=== PATIENT | female | born 1945 | race Caucasian/White ===

== ENCOUNTER 2017-05-11 14:54 | Emergency (ER) | payer MEDICARE, MEDICAID ==
[~2017-05-11] VITALS: Ht 165.1 cm; Wt 67.4 kg
[~2017-05-11 14:54] MED LIST: ASPIRIN81 MG PO; CELEXA20 MG PO; CENTRUM SILVER1 TAB PO; DARVOCET-N6 EACH/PAK PO; DIAZEPAM5 M1 PO; KEFLEX250 M1 PO; LISINOPRIL 20MG20 MG PO; PROPRANOLOL HCL40 M1 PO; SIMVASTATIN40 MG PO; VICODIN 5/500 T1 TAB PO
[2017-05-11] MEDS ORDERED: LIPITOR20 MG PO (15:17)
[2017-05-11] MEDS ORDERED: FISH OIL1000 MG PO (15:18)
[2017-05-11] MEDS ORDERED: VITAMIN B-1100 MG PO (15:18)
[2017-05-11] MEDS ORDERED: NEURONTIN400 M1 PO (15:18)
--- OUTSIDE RECORDS SUMMARY | 2017-05-11 16:12 | External Medical Summary Rpt ---
Author Author [facility] Organization [facility] Address Unknown Phone Unavailable Care Team Providers Care Occupational Therapy Director Name Role Phone Sundar VINES PCP [phone] Encounter [facility] [id number] Date(s): 07/15/16 - 07/20/16 [facility] [address] [place] [id number]- Discharge Diagnosis: Muscle weakness Discharge Disposition: OP Self Care or Home Attending Physician: MONTY LAND MD-SUR Admitting Physician: MONTY LAND MD-SUR Referring Physician: MONTY LAND MD-SUR Reason for Visit MUSCLE WEAKNESS (GENERALIZED) Vital Signs Most recent 1 2 3 to oldest [Reference Range]: Temperature Temporal artery Temporal artery Source scanning (07/20/16 scanning (07/20/16 8:25 AM) 7:00 AM) Temperature Fahrenheit Fahrenheit Mode (07/20/16 8:25 AM) (07/20/16 7:00 AM) Temperature, 97.4 Deg F 98.6 Deg F Fahrenheit (07/20/16 8:25 AM) (07/20/16 7:00 AM) [96.8-99.7 Deg F] Clinical 36.3 Deg C Temperature, (07/20/16 8:25 AM) C Peripheral 74 bpm 75 bpm Pulse Rate (07/20/16 8:39 AM) (07/20/16 8:25 AM) [60-100 bpm] Heart Rate 78 bpm Monitored (07/20/16 7:00 AM) [60-100 bpm] Respiratory 16 Breaths/Min Rate [14-20 (07/20/16 7:00 AM) Breaths/Min] Blood Arm, left upper Pressure (07/20/16 7:00 AM) Location Blood Non-Invasive BP Pressure Device (07/20/16 Source 7:00 AM) Blood 100/60 mmHg 103/62 mmHg 101/53 mmHg Pressure (07/20/16 8:39 AM) (07/20/16 8:25 AM) (07/20/16 7:00 AM) [90-140/60-9 0 mmHg] Oxygen 97 % 97 % 96 % Saturation (07/20/16 8:39 AM) (07/20/16 8:25 AM) (07/20/16 7:00 AM) [94-100 %] Oxygen Room air Room air Therapy Mode (07/20/16 8:25 AM) (07/20/16 7:00 AM) Problem List Condition Effective Status Health Informant Dates Status Arthritis(Co Active nfirmed) Back Active pain(Confirm ed) Bronchitis(C Active onfirmed) Cigarette Active smoker(Confi rmed) Coronary Active artery disease(Conf irmed) DDD Active (degenerativ e disc disease), cervical(Con firmed) DDD Active (degenerativ e disc disease), lumbosacral( Confirmed) Carotid Active artery disease(Conf irmed) Dyspnea on Active exertion(Con firmed) falls Active recently leg/muscle weakness(Con firmed) GERD - Active Gastro-esoph ageal reflux disease(Conf irmed) H/O ruptured Active Spleen(Confi rmed) Frequent Active headaches(Co nfirmed) heart Active murmur(Confi rmed) Hx of Active dizziness(Co nfirmed) History of Active mitral valve prolapse(Con firmed) Hyperlipidem Active ia(Confirmed ) Hypertension Active (Confirmed) Anxiety and Active depression(C onfirmed) Peripheral Active vascular disease(Conf irmed) Pneumonia -? Active yr(Confirmed ) Emphysema/CO Active PD(Confirmed ) Allergies, Adverse Reactions, Alerts Substance Reaction Severity Status acetaminophen-di hives Active phenhydrAMINE hives contrast media Rash Active (iodine-based) Rash sulfa drugs Hives Active Medications aspirin 81 mg, Oral, Every Day, Refills: 0 citalopram (citalopram 20 mg oral tablet) 1 Tab, Oral, Every Day, Refills: 0 diazepam (diazepam 5 mg oral tablet)1 Tab, Oral, Four Times A Day, As Needed, for anxiety, Refills: 0 gabapentin (gabapentin 300 mg oral capsule) 1 Cap, Oral, Two Times A Day, Refills: 0 lisinopril (lisinopril 40 mg oral tablet) 1 Tab, Oral, Every Day, Refills: 0 omega-3 polyunsaturated fatty acids (Fish Oil 1000 mg oral capsule)1 Cap, Oral, Two Times A Day, Refills: 0 propranolol (propranolol 40 mg oral tablet) 1 Tab, Oral, Two Times A Day, Refills: 0 simvastatin (simvastatin 40 mg oral tablet) 1 Tab, Oral, At Bedtime, Refills: 0 thiamine (Vitamin B1 100 mg oral tablet) 1 Tab, Oral, Every Day, Refills: 0 Results No data available for this section Immunizations No data available for this section Procedures Procedure Date Related Body Site Diagnosis right carotid stent 01/23 back surgery L&D cholecystectomy hysterectomy left breast lumpectomy tubal ligation Social History Social History Response Type Smoking Status Current every day smoker; Smoking Frequency Within Last 30 Days Five or more cigarettes per day; Tobacco Use Within Last Twelve Months Cigarettes; Years of Tobacco Use 52; Packs/Tins Daily 1; Used Tobacco, but Quit No; Second Hand Smoke Exposure No; Smokeless Tobacco Use in Last 30 Days No; Smokeless Tobacco Use History None Assessment and Plan No data available for this section Hospital Discharge Instructions Patient EducationGeneral Anesthesia, Adult, Care After
--- OUTSIDE RECORDS SUMMARY | 2017-05-11 16:12 | External Medical Summary Rpt ---
Author Author [facility] Organization [facility] Address Unknown Phone Unavailable Care Team Providers Care Hinging Machine Operator Name Role Phone Sundar VINES PCP [phone] Encounter [facility] [id number] Date(s): 07/15/16 - 07/20/16 [facility] [address] [address]- Discharge Diagnosis: Muscle weakness Discharge Disposition: OP [...]
--- OUTSIDE RECORDS SUMMARY | 2017-05-11 16:13 | External Medical Summary Rpt ---
Author Author , Organization [facility] Address Unknown Phone Unavailable Care Team Providers Care Supervisor Powdered Metal Name Role Phone A Sundar VINES MD PSC, A Unavailable Unavailable Sundar VINES MD PSC [facility] Unavailable [facility]available [facility] Unavailable Unavailable [facility] Unavailable Unavailable [facility], [facility] Un[facility] Unavailable [facility], [facility], [facility] Unavailable Unavailable MANSOOR TIM, Unavailable Unavailable [facility]SO[facility] TIM [facility] Unavailable Unavailable [facility], [facility], Unavailable Unavailable [facility] EVERMAN, EVERMAN Unavailable Unavailable EVERMAN JACOB, EVERMAN Unavailable Unavailable JACOB FALLUJI CLAIRE, FALLUJI Unavailable Unavailable [facility] Un[facility], [facility] LÁZARO CASIANO, LÁZARO CASIANO Unavailable Unavailable [facility], [facility] Unavailable Unavailable MEDICAL G, [facility] Un[facility], [facility]available Unavailable [facility], [facility] Unavailable Unavailable [facility], [facility], SCIFRES Unavailable Unavailable AN[facility] Unavailable Unavailable [facility], [facility] Unavailable Unavailable [facility], [facility], Unavailable Unavailable [facility] SHANDA DILIA, SHANDA Unavailable Unavailable [facility] Unavailable Unavailable [facility], [facility], Unavailable Unavailable [facility] WHANG EVELIO, WHANG EVELIO Unavailable Unavailable SHAIKH GRE, SHAIKH Unavailable Unavailable GRE VINES A, VINES A Unavailable Unavailable VINES MARTÍN, VINES Unavailable Unavailable MARTÍN Purpose Continuity of Care Document - 09-07-2011 through 2016 Problems Code Diagnosis DOS Provider Status E782 MIXED 04-14-2017 [facility] HYPERLIPIDE [facility] AGUILAR HOLDINGS I10 ESSENTIAL 04-14-2017 [facility] PRIMARY ANIBAL HYPERTENSIO HOLDINGS N G629 POLYNEUROPA 01-01-2017 [facility] THY UNSPECIFIED I6529 OCCLUSION & 01-01-2017 [facility] STENOSIS UNSPECIFIED CAROTID ARTERY M5416 RADICULOPAT 01-01-2017 [facility] HY LUMBAR REGION R269 UNSPECIFIED 01-01-2017 [facility] ABNORMALITI ES OF GAIT AND MOBILITY R293 ABNORMAL 11-23-2016 [facility] POST[facility]ALTH MEDICAL G G92999 MUSCLE 07-20-2016 [facility] RIGHT THIGH M6281 MUSCLE 07-20-2016 [facility] GENERALIZED PSC Z0000 ENCOUNTER 07-20-2016 [facility] MED EXAM W/O ABNORMAL FIND E5111 DRY 07-15-2016 [facility] [id number] CONTUSION 07-14-2016 [facility] UNS FINGER ANIBAL W/O DAMAGE HOLDINGS NAIL INITIAL ENC Z23 ENCOUNTER 07-14-2016 [facility] FOR ANIBAL IMMUNIZATIO HOLDINGS N 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 CHRONIC 07-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 UNS EQUIPME M545 LOW BACK 07-07-2016 [facility] Z9181 HISTORY OF 07-07-2016 [facility] M5126 OT 05-06-2016 [facility] DISPLACEMEN T LUMBAR RGN M5136 OT 05-06-2016 [facility] DEGEN LUMBAR REGION G250 ESSENTIAL 04-29-2016 [facility] A75763 PAIN IN 04-07-2016 [facility] D12913 PAIN IN 04-07-2016 [facility] R42 DIZZINESS 03-05-2016 [facility] Z720 TOBACCO USE 03-05-2016 [facility] Z98158 OTHER LONG 03-05-2016 [facility] CURRENT INC DRUG THERAPY C80475 PRESENCE OF 03-05-2016 [facility] CARDIAC INC IMPLANTS AND GRAFTS I340 NONRHEUMATI 02-27-2016 [facility] INSUFFICIEN CY R0609 OTHER FORMS 02-27-2016 [facility] G I779 DISORDER OF 01-14-2016 Leatha TUCKER MD PSC AND ARTERIOLES UNSPECIFIED 2724 OTHER AND 07-16-2015 [facility] UNSPECIFIED ANIBAL HOLDINGS HYPERLIPIDE AGUILAR 4011 ESSENTIAL 07-16-2015 [facility] HYPERTENSIO ANIBAL N, BENIGN HOLDINGS V851 BODY MASS 07-16-2015 [facility] INDEX ANIBAL [facility] 19-24 ADULT 86746 DENTAL 04-15-2015 [facility] CARIES OF ANIBAL ROOT HOLDINGS SURFACE 7242 LUMBAGO 04-15-2015 [facility] AN[facility] 73424 OCCLUSION&S 02-17-2015 [facility] CAROTID ART MEDICAL G W/O MENTION INFARCT 4019 UNSPECIFIED 02-14-2015 [facility] HYPERTENSIO N V1582 PERS HX 02-14-2015 [facility] TOBACCO USE [facility] 16842 COR 01-15-2015 A Sundar VINES ATHEROSLERUri MATHEWS PSC UNSPEC TYPE VESSEL QUILEUTE/LESLEE T 4479 UNSPECIFIED 01-15-2015 A Sundar VINES DISORDERS PSC OF ARTERIES AND ARTERIOLES 7030 INGROWING 07-16-2014 A Sundar VINES NAIL PSC V0382 NEED PROPH 07-16-2014 A Sundar VINES VACCINATION PSC AGAINST STREP PNEUMONE V0481 NEED 07-16-2014 A Sundar VINES PROPHYLACTI PSC C VACCINATION &INOCULATIO N FLU V7612 OTHER 04-29-2014 [facility] MAMMOGRAM INC 83819 NUCLEAR 03-14-2014 [facility] 93047 OCCL&STENOS 02-14-2014 [facility] MX&BILAT [facility]ICAL PRECERBRL IMAGING ASS ART W/O INFARCT 47295 UNSPECIFIED 09-04-2012 [facility] S 7231 CERVICALGIA 07-21-2012 [facility] 441 AORTIC 01-26-2012 [facility] DISSECTION 59182 SHORTNESS 01-26-2012 [facility] INC 7804 DIZZINESS 12-01-2011 [facility] K[facility]AD[facility] 4359 UNSPECIFIED 11-03-2011 [facility] CEREBRAL INC ISCHEMIA 7852 UNDIAGNOSED 09-20-2011 [facility] CARD[facility]AC [facility] MURMURS INC 7812 ABNORMALITY 09-07-2011 [facility] INC V571 OTHER 09-07-2011 [facility] THERAPY INC Immunization Name Date Route CVX Reacti Commen Provid Is Given on t er Refuse d PCV13 MOHINDER No VACCIN 2013 A E FOR INTRAM USCULA R USE Procedures Procedure DOS Code Location Performer Comment BASIC 57394 [facility] METABOLIC 7 ANIBAL ANIBAL PANEL HOLDINGS HOLDINGS CALCIUM TOTAL COMMODE E0163 [facility] CHAIR 7 MOBILE OR STATIONAR Y W/[place] [address] [facility] SURG 6 Y Y PATHOLOGY [facility] GROSS&AB ROSCOPIC EXAM SPECIAL 09662 [facility] I&R 6 Y Y [facility] III ENZYME CONSITUEN TS SPCL STN 68052 [facility] 2 I&R 6 Y [facility] MICROORG/ ENZYME/IM CYT ANES 67899 [facility] LÁZARO STEPHENIE NERVE 6 A MUSC ASSOCIATE TENDON S PSC FASCIA & BURSAE UPPER LEG BIOPSY [facility] MUSCLE 6 SURGICAL DILIA DEEP ASSOCIATE S COLLECTIO 71690 [facility] N VENOUS [address] [place] [address] BLOOD VENIPUNCT URE C-REACTIV 42376 [facility] E PROTEIN [address] [place] [address] CREATINE 99788 [facility] KINASE [address] [place] [address] TOTAL SEDIMENTA 46644 [facility] TION RATE [address] [place] [address] RBC NON-AUTOM ATED BASIC 24622 [facility] METABOLIC 6 ANIBAL ANIBAL PANEL HOLDINGS HOLDINGS CALCIUM TOTAL SEAT E0156 [facility] RUEDARELL ATTACHMEN 6 HOME HOME T WALKER MEDICAL MEDICAL EQUIPME EQUIPME WALKER E0143 MATT MATT FOLDING 6 HOME HOME WHEELED MEDICAL MEDICAL ADJUSTABL EQUIPME EQUIPME E/FIXED HEIGHT NERVE 09619 [facility] ANNOCALA CONDUCTIO 6 NE HEALTH JACOB N STUDIES MEDICAL 7-8 G STUDIES NEEDLE 49990 [facility] EMG EA 6 NE HEALTH JACOB EXTREMTY MEDICAL W/PARASPI G NL AREA COMPLETE MRI 13954 [facility] SPINAL 6 [facility] CANAL INC INC LUMBAR W/O CONTRAST MATERIAL 3D 08246 [facility] RENDERING 6 [facility] W/INTERP INC INC & POSTPROCE SS SUPERVISI ON PROTEIN [address] ORETIC FRACTJ&[place] [address] [facility] THIAMINE[address] VITAMIN B-1 CYANOCOBA 33138 [facility] JERICHO [address] [place] [address] VITAMIN B-12 COLLECTIO 30356 [facility] N VENOUS [address] [place] [address] [place] [address] [facility] COPPER [address] [place] [address] [place] [address] [facility] FOLIC [address] [place] [address] ACID SERUM IMMUNOFIX [address] ELECTROPH ORESIS SERUM COMPREHEN 11732 [facility] SIVE [address] [place] [address] METABOLIC PANEL BASIC 24469 [facility] LAB PRIETO METABOLIC 6 ANIBAL ANIBAL PANEL HOLDINGS HOLDINGS CALCIUM TOTAL RADEX HIP 00709 [facility] 6 MEDICAL UNILATERA IMAGING L WITH ASS PELVIS 1 VIEW RADIOLOGI 63249 [facility] C 6 MEDICAL EXAMINATI IMAGING ON FEMUR ASS 1 VIEW RADEX HIP 30986 [facility] 6 [facility] UNILATERA INC INC L WITH PELVIS 2-3 VIEWS RADIOLOGI 23636 [facility] C 6 [facility] EXAMINATI INC INC ON FEMUR MINIMUM 2 VIEWS DUPLEX 16379 [facility] SCAN 6 [facility]OS[facility] EXTRACRAN INC INC IAL ART COMPL BI STUDY ECHO 11638 [facility] TTHRC R-T 6 [facility] HOS[facility] 2D INC INC W/WOM-MOD E COMPL SPEC&COLR D GLUCOSE 62391 A Sundar VINES QUANTITAT 6 MOHINDER RESENDIZ KIKA BLOOD PSC XCPT REAGENT STRIP CHOLESTER 69183 A Sundar VINES OL 6 MOHINDER RESENDIZ SERUM/WHO PSC LE BLOOD TOTAL BASIC 65994 [facility]O METABOLIC 6 ANIBAL ANIBAL PANEL HOLDINGS HOLDINGS CALCIUM TOTAL TRANSFERA 40974 A Sundar VINES SE 6 MOHINDER RESENDIZ [place] [address] A Sundar VINES TRIGLYCER 6 MOHINDER RESENDIZ IDES PSC TRANSFERA 73294 A Sundar VINES SE 6 MOHINDER RESENDIZ ALANINE PSC AMINO ALT SGPT LIPOPROTE 09284 Leatha VINES IN DIR 6 MOHINDER RESENDIZ CLAUDIO HIGH PSC DENSITY CHOLESTER OL BASIC 03210 [facility]O METABOLIC 5 ANIBAL ANIABL PANEL HOLDINGS HOLDINGS CALCIUM TOTAL BASIC 46285 [facility] LAB PRIETO METABOLIC 5 ANIBAL ANIBAL PANEL HOLDINGS HOLDINGS CALCIUM TOTAL DUPLEX 09040 [facility] SCAN 5 [facility] EXTRACRAN MEDICAL IAL ART G COMPL BI STUDY DUPLEX 57018 [facility] SCAN 5 [facility] EXTRACRAN IAL ART COMPL BI STUDY BASIC 79326 [facility] METABOLIC 5 ANIBAL ANIBAL PANEL HOLDINGS HOLDINGS CALCIUM TOTAL CHOLESTER 30026 A C MOHINDER A OL 5 MOHINDER MATHEWS SERUM/WHO PSC LE BLOOD TOTAL LIPOPROTE 52719 A Sundar Zhang IN DIR 5 MOHINDER MATHEWS CLAUDIO [place] [address] A C MOHINDER Zhang TRIGLYCER 5 MOHINDER MATHEWS IDES PSC TRANSFERA 26836 A Sundar Zhang SE 5 MOHINDER MATHEWS ASPARTATE PSC AMINO AST SGOT TRANSFERA 45759 A Sundar Zhang SE 5 MOHINDER MATHEWS ALANINE PSC AMINO ALT SGPT COLLECTIO 08261 A C MOHINDER Zhang N VENOUS 5 MOHINDER MATHEWS BLOOD PSC VENIPUNCT URE BASIC 42429 [facility] METABOLIC 4 ANIBAL ANIBAL PANEL HOLDINGS HOLDINGS CALCIUM TOTAL INFLUENZA Q2038 A C MOHINDER Zhang VACC 4 MOHINDER MATHEWS SPLIT PSC VIRUS 3 YRS & > IM FLUZONE GLUCOSE 70028 A Sundar Zhang QUANTITAT 4 MOHINDER MATHEWS KIKA BLOOD PSC XCPT REAGENT STRIP CHOLESTER 82046 A Sundar Zhang OL 4 MOHINDER MATHEWS SERUM/WHO PSC LE BLOOD TOTAL ADMINISTR G0009 A Sundar Zhang ATION OF 4 MOHINDER MATHEWS PNEUMOCOC PSC SUSAN VACCINE TRANSFERA 49940 A Sundar Zhang SE 4 MOHINDER MATHEWS ALANINE PSC AMINO ALT SGPT TRANSFERA 64815 A Sundar Zhang SE 4 MOHINDER MATHEWS [place] [address] A Sundar Zhang TRIGLYCER 4 MOHINDER MATHEWS IDES PSC LIPOPROTE 75456 A Sundar Zhang IN DIR 4 MOHINDER MATHEWS CLAUDIO HIGH PSC DENSITY CHOLESTER OL ADMINISTR G0008 A Sundar Zhang ATION OF 4 MOHINDER MATHEWS INFLUENZA PSC VIRUS VACCINE PCV13 44209 Leatha VINES A VACCINE 4 MOHINDER MATHEWS FOR PSC INTRAMUSC ULAR USE BASIC 24421 [facility] METABOLIC 4 ANIBAL ANIBAL PANEL HOLDINGS HOLDINGS CALCIUM TOTAL SCREENING G0202 [facility] 4 [facility] MAMMOGRAP INC INC HY JOSELUIS INCL CAD WHEN PERFORMD COMPUTER- 76058 [facility] AIDED 4 [facility] DETECTION INC INC SCREENING MAMMOGRAP HY BASIC 87354 [facility] METABOLIC 4 ANIBAL ANIBAL PANEL HOLDINGS HOLDINGS CALCIUM TOTAL DETERMINA 00270 [place] SC[facility] TION 4 V[facility]G REFRACTIV CENTER E [facility] O[facility] 40982 [place] SCIFRES MEDICAL 4 VISION ANG XM&EVAL CENTER COMPRE NEW PT 1/> VST DUPLEX 28507 [facility] SCAN 4 MEDICAL TIM EXTRACRAN IMAGING IAL ART ASS COMPL BI STUDY BASIC 03833 [facility] METABOLIC 4 ANIBAL ANIBAL PANEL HOLDINGS HOLDINGS CALCIUM TOTAL BASIC 26030 LAB [facility] LAB PRIETO METABOLIC 3 ANIBAL ANIBAL PANEL HOLDINGS HOLDINGS CALCIUM TOTAL DUPLEX 05880 [facility] SCAN 3 [facility] EXTRACRAN INC INC IAL ART COMPL BI STUDY MRI 66613 [facility] SPINAL 2 [facility] CANAL INC INC CERVICAL W/O CONTRAST MATRL 3D 05463 [facility] RENDERING 2 [facility] W/INTERP INC INC & POSTPROCE SS SUPERVISI ON LOCM Q9967 [facility] 300-399 2 [facility] MG/ML INC INC IODINE CONCENTRA TION PER ML CREATININ 95473 [facility] E BLOOD 2 [place] [address] [facility] UREA 2 [facility] NITROGEN INC INC QUANTITAT KIKA COLLECTIO 39620 [facility] N VENOUS 2 [facility] BLOOD INC INC VENIPUNCT URE BRNCDILAT 18356 [facility] RSPSE 2 [facility] SPMTRY INC INC PRE&POST- BRNCDILAT ADMN PRESSURIZ 86273 [facility] ED/NONPRE 2 [facility] SSURIZED INC INC INHALATIO N TREATMENT GAS 65785 [facility] DILUT/WAS 2 [facility] HOUT LUNG INC INC VOL W/WO DISTRIB [place]ENT&[place] [address] [facility] ANGIOGRAP 2 [facility] HY NECK INC INC W/CONTRAS T/[place] [address] [facility] ANGIOGRAP 1 [facility] HY NECK INC INC W/CONTRAS T/NONCONT RAST LOCM Q9967 [facility] 300-399 1 [facility] MG/ML INC INC IODINE CONCENTRA TION PER ML ECHO 17073 [facility] TTHRC R-T 1 [facility] 2D INC INC W/WOM-MOD E COMPL SPEC&COLR D THERAPEUT 80088 [facility] ACTVITY 1 [facility] DIRECT PT INC INC CONTACT EACH 15 MIN PHYSICAL 58970 [facility] THERAPY 1 [facility] EVALUATIO INC INC N Encounters Encounter Start End Date Code Location Performer Type Date OFFICE 6[address] [facility] 7 7 [facility] T VISIT MEDICAL 15 G [facility] 6 6 [facility] [address] OFFICE [address] [facility] 6 6 SURGICAL DILIA ASSOCIATE MINUTES S OFFICE 33115 [facility] 6 6 [facility] JACOB T VISIT MEDICAL 15 G [facility] - 6 6 [facility] OUTPATIEN [facility] [address] J[facility] - 6 6 [facility] OUTPATIEN [facility] - 6 6 [facility] OUTPATIEN [facility] T OFFICE [address] [place] [facility] 6 6 [facility] T VISIT MEDICAL 25 G MINUTES OFFICE 36784 A Sundar VINES OUTPATIEN 6 6 [facility] RESENDIZ T VISIT PSC 25 MINUTES [facility] [place] [address] 5 [facility] OUTPATIEN T OFFICE 60750 A Sundar Zhang OUTPATIEN 5 5 MOHINDER MATHEWS T VISIT PSC 15 MINUTES OFFICE 79899 A Sundar VINES A OUTPATIEN 4 4 MOHINDER MATHEWS T VISIT [facility] 25 MINUTES HOSPITAL [facility] - 4 4 [facility] - 4 4 [facility]PATIEN [facility] - 3 3 [facility] T OFFICE [address]6570 [place] [facility] 2 2 MEDICAL GRE T NEW 45 SERV MINUTES [facility] JOUSÉ - 2 2 [facility] OFFICE 88289 [facility] OUTPATIEN 2 2 CARDIOTHO T VISIT RACIC 10 SURGI [facility] - 2 2 [facility] T OFFICE 57437 [facility] OUT[facility]IEN 2 2 NEUROLOGY YA T VISIT CENTER 15 KHADIJAH MINUTES OFFICE 48038 [facility] OUTPATIEN 2 2 CARDIOTHO T VISIT RAC 10 SURGI [facility] - 1 1 [facility] T OFFICE 62630 [facility] 1 1 NEUROLOGY AY T VISIT CENTER 25 KHADIJAH MINUTES HOSPITAL [facility] - 1 1 [facility] - 1 1 [facility] OUTPATIEN INC T
--- OUTSIDE RECORDS SUMMARY | 2017-05-11 16:13 | External Medical Summary Rpt ---
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 Name Role Phone A Sundar VINES MD PSC, A Unavailable Unavailable Sundar VINES MD PSC [facility] Unavailable Unavailable [facility], [facility] Unavailable Unavailable [facility] Unavailable Unavailable [facility], [facility] Unavailable [facility] ARROYO ALL, ARROYO ALL Unavailable Unavailable MANSOOR TIM, Unavailable Unavailable MANSOOR TIM [facility] Un[facility] Unavailable [facility], [facility], Unavailable Unavailable [facility] EVERMAN, EVERMAN Unavailable Unavailable EVERMAN JACOB, EVERMAN Unavailable Unavailable JACOB FALLUJI CLAIRE, FALLUJI Unavailable Unavailable [facility], [facility] LÁZARO CASIANO, LÁZARO CASIANO Unavailable Unavailable [facility], [facility] Unavailable Unavailable MEDICAL G, [facility] Un[facility], [facility] Unavailable Unavailable [facility], [facility] Unavailable Unavailable [facility], [facility] SCIF[facility] ANG, SCIFRES Unavailable Unavailable ANG [facility] Unavailable Unavailable [facility], [facility] Unavailable Unavailable [facility], [facility], Unavailable Unavailable [facility] SHANDA DILIA, SHANDA Unavailable Unavailable DIL[facility] Unavailable Unavailable ASSOC[facility], [facility], Unavailable Unavailable [facility] WHANG EVELIO, WHANG EVELIO Unavailable Unavailable SHAIKH [...] OF GAIT AND MOBILITY R293 ABNORMAL 11-23-2016 [facility] POSTURE HEALTH MEDICAL G [id number] MUSCLE 07-20-2016 [facility] RIGHT THIGH M6281 MUSCLE 07-20-2016 [facility] GENERALIZED PSC Z0000 ENCOUNTER 07-20-2016 [facility] MED EXAM W/O ABNORMAL FIND E5111 DRY 07-15-2016 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 UNS EQUIPME M545 LOW BACK 07-07-2016 [facility] Z9181 HISTORY OF 07-07-2016 [facility] M5126 OT 05-06-2016 [facility] DISPLACEMEN T LUMBAR RGN M5136 OT 05-06-2016 [facility] DEGEN LUMBAR REGION G250 ESSENTIAL 04-29-2016 [facility] I14022 PAIN IN 04-07-2016 [facility] J34070 PAIN IN 04-07-2016 [facility] R42 DIZZINESS 03-05-2016 [facility] Z720 TOBACCO USE 03-05-2016 [facility] D53177 OTHER LONG 03-05-2016 [facility] CURRENT INC DRUG THERAPY X36763 PRESENCE OF 03-05-2016 [facility] [...] PRIETO INDEX ANIBAL [facility]INGS 19-24 ADULT 45574 DENTAL 04-15-2015 [facility] CARIES OF ANIBAL ROOT HOLDINGS SURFACE 7242 LUMBAGO 04-15-2015 [facility] ANIBAL HOLDINGS 13764 OCCLUSION&S 02-17-2015 [facility] CAROTID ART MEDICAL G W/O MENTION INFARCT 4019 UNSPECIFIED 02-14-2015 [facility] HYPERTENSIO N V1582 PERS HX 02-14-2015 [facility] TOBACCO [facility] 06911 COR 01-15-2015 A Sundar VINES ATHEROSLERUri MATHEWS PSC UNSPEC TYPE VESSEL TOHONO [place]/LESLEE T 4479 UNSPECIFIED 01-15-2015 A Sundar VINES DISORDERS PSC OF ARTERIES AND ARTERIOLES 7030 INGROWING 07-16-2014 A Sundar VINES NAIL PSC V0382 NEED PROPH 07-16-2014 A Sundar VINES VACCINATION PSC AGAINST STREP PNEUMONE V0481 NEED 07-16-2014 A Sundar VINES PROPHYLACTI PSC C VACCINATION &INOCULATIO N FLU V7612 OTHER 04-29-2014 [facility] MAMMOGRAM INC 04838 NUCLEAR 03-14-2014 [facility] 14253 OCCL&STENOS 02-14-2014 [facility] PRECERBRL IMAGING ASS ART W/O INFARCT 74592 UNSPECIFIED 09-04-2012 [facility] OSTEOP[facility]I [facility] S 7231 CERVICALGIA 07-21-2012 [facility] 441 AORTIC 01-26-2012 [facility] DISSECTION 38274 SHORTNESS 01-26-2012 [facility] 7804 DIZZINESS 12-01-2011 [facility] KHADIJAH 4359 UNSPECIFIED [...] Procedure DOS Code Location Performer Comment BASIC 05649 [facility] METABOLIC 7 ANIBAL ANIBAL PANEL HOLDINGS HOLDINGS CALCIUM TOTAL COMMODE E0163 [facility] CHAIR 7 MOBILE OR STATIONAR Y [place] [address] [facility] SURG 6 Y Y PATHOLOGY [facility] GROSS&AB ROSCOPIC EXAM SPECIAL 82182 [facility] I&R 6 Y Y [facility] III ENZYME CONSITUEN TS SPCL STN 41195 [facility] 2 I&R 6 Y Y [facility]/ ENZY[facility]/IM CYT ANES 54107 [facility]I LÁZARO STEPHENIE NERVE 6 A MUSC ASSOCIATE TENDON S PSC FASCIA & BURSAE UPPER LEG BIOPSY [facility] MUSCLE 6 SURGICAL DILIA DEEP ASSOCIATE S COLLECTIO 94169 [facility] N VENOUS [address] [place] [address] BLOOD VENIPUNCT URE C-REACTIV 38345 [facility] E PROTEIN [address] [place] [address] CREATINE 00241 [facility] KINASE [address] [place] [address] TOTAL SEDIMENTA 62931 [facility] TION RATE [address] [place] [address] RBC NON-AUTOM ATED BASIC 26616 LAB [facility] METABOLIC 6 ANIBAL ANIBAL PANEL HOLDINGS HOLDINGS CALCIUM TOTAL SEAT E0156 M[facility] RUEDARELL ATTACHMEN 6 HOME HOME T [facility] MEDICAL EQUIPME EQUIPME WALKER E0143 MATT MATT FOLDING 6 HOME HOME WHEELED MEDICAL MEDICAL ADJUSTABL EQUIPME EQUIPME E/FIXED HEIGHT NERVE 59638 [facility] CONDUCTIO 6 [facility] JACOB N STUDIES MEDICAL 7-8 G STUDIES NEEDLE 23086 [facility] EMG EA 6 [facility] J[facility]OB EXTREMTY MEDICAL W/PARASPI G NL AREA COMPLETE MRI 95913 [facility] SPINAL 6 [facility] CANAL INC INC LUMBAR W/O CONTRAST MATERIAL 3D 17118 [facility] RENDERING 6 [facility] W/INTERP INC INC & POSTPROCE SS SUPERVISI ON PROTEIN [address] ORETIC FRACTJ&[place] [address] [facility] [address]IAMINE[address] VITAMIN B-1 CYANOCOBA 59288 [facility] JERICHO [address] [place] [address] VITAMIN B-12 COLLECTIO 39528 [facility] N VENOUS [address] [place] [address] [place] [address] [facility] COPPER [address] [place] [address] [place] [address] [facility] FOLIC [address] [place] [address] ACID SERUM IMMUNOFIX [address] ELECTROPH ORESIS SERUM COMPREHEN 04063 [facility] SIVE [address] [place] [address] METABOLIC PANEL BASIC 46800 [facility] METABOLIC 6 ANIBAL ANIBAL PANEL HOLDINGS HOLDINGS CALCIUM TOTAL RADEX HIP 43855 [facility] 6 MEDICAL UNILATERA IMAGING L WITH ASS PELVIS 1 VIEW RADIOLOGI 61757 [place] C 6 MEDICAL EXAMINATI IMAGING ON FEMUR ASS 1 VIEW RADEX HIP 96811 [facility] 6 [facility] UNILATERA INC INC L WITH PELVIS 2-3 VIEWS RADIOLOGI 95268 [facility] C 6 [facility] EXAMINATI INC INC ON FEMUR MINIMUM 2 VIEWS DUPLEX 64547 [facility] SCAN 6 [facility] EXTRACRAN INC INC IAL ART COMPL BI STUDY ECHO 71839 [facility] TTHRC R-T 6 [facility] 2D INC INC W/WOM-MOD E COMPL SPEC&COLR D GLUCOSE 28709 A Sundar VINES QUANTITAT 6 [facility] RESENDIZ KIKA BLOOD PSC XCPT REAGENT STRIP CHOLESTER 93225 A Sundar VINES OL 6 MOHINDER RESENDIZ SERUM/WHO PSC LE BLOOD TOTAL BASIC 47957 [facility] METABOLIC 6 ANIBAL ANIBAL PANEL HOLDINGS HOLDINGS CALCIUM TOTAL TRANSFERA 23924 A Sundar VINES SE 6 [facility]OH[facility]ER RESENDIZ [place] [address] A Sundar VINES TRIGLYCER 6 [facility]OHINDER RESENDIZ IDES PSC TRANSFERA 20504 A Sundar VINES SE 6 MOHINDER RESENDIZ ALANINE PSC AMINO ALT SGPT LIPOPROTE 86169 Leatha VINES IN DIR 6 M[facility]INDER RESENDIZ CLAUDIO HIGH PSC DENSITY CHOLESTER OL BASIC 81438 [facility] METABOLIC 5 ANIBAL ANIBAL PANEL HOLDINGS HOLDINGS CALCIUM TOTAL BASIC 43181 LAB [facility] PR[facility]ET[facility] METABOLIC 5 ANIBAL ANIBAL PANEL HOLDINGS HOLDINGS CALCIUM TOTAL DUPLEX 78227 [facility] SCAN 5 [facility] EXTRACRAN MEDICAL IAL ART G COMPL BI STUDY DUPLEX 15156 [facility] SCAN 5 [facility] EXTRACRAN IAL ART COMPL BI STUDY BASIC 40419 [facility] PR[facility] METABOLIC 5 ANIBAL ANIBAL PANEL HOLDINGS HOLDINGS CALCIUM TOTAL CHOLESTER 02559 A C MOHINDER A OL 5 MOHINDER MATHEWS SERUM/WHO PSC LE BLOOD TOTAL LIPOPROTE 91387 A Sunadr Zhang IN DIR 5 MOHINDER MATHEWS CLAUDIO [place] [address] A C MOHINDER Zhang TRIGLYCER 5 MOHINDER MATHEWS IDES PSC TRANSFERA 52274 A Sundar Zhang SE 5 MOHINDER MATHEWS ASPARTATE PSC AMINO AST SGOT TRANSFERA 45104 A Sundar Zhang SE 5 MOHINDER MATHEWS ALANINE PSC AMINO ALT SGPT COLLECTIO 34216 A C MOHINDER Zhang N VENOUS 5 MOHINDER MATHEWS BLOOD PSC VENIPUNCT URE BASIC 83576 [facility] METABOLIC 4 ANIBAL ANIBAL PANEL HOLDINGS HOLDINGS CALCIUM TOTAL INFLUENZA Q2038 A C MOHINDER Zhang VACC 4 MOHINDER MATHEWS SPLIT PSC VIRUS 3 YRS & > IM FLUZONE GLUCOSE 16276 A Sundar Zhang QUANTITAT 4 MOHINDER MATHEWS KIKA BLOOD PSC XCPT REAGENT STRIP CHOLESTER 21373 A Sundar Zhang OL 4 MOHINDER MATHEWS SERUM/WHO PSC LE BLOOD TOTAL ADMINISTR G0009 A Sundar Zhang ATION OF 4 MOHINDER MATHEWS PNEUMOCOC PSC SUSAN VACCINE TRANSFERA 22317 A Sundar Zhang SE 4 MOHINDER MATHEWS ALANINE PSC AMINO ALT SGPT TRANSFERA 43769 A Sundar Zhang SE 4 MOHINDER MATHEWS [place]ART[place] [address] A Sundar Zhang TRIGLYCER 4 MOHINDER MATHEWS IDES PSC LIPOPROTE 50537 A Sundar Zhang IN DIR 4 MOHINDER MATHEWS CLAUDIO HIGH PSC DENSITY CHOLESTER OL ADMINISTR G0008 A Sundar Zhang ATION OF 4 MOHINDER MATHEWS INFLUENZA PSC VIRUS VACCINE PCV13 35973 Leatha VINES A VACCINE 4 MOHINDER MATHEWS FOR PSC INTRAMUSC ULAR USE BASIC 80125 [facility] METABOLIC 4 ANIBAL ANIBAL PANEL HOLDINGS HOLDINGS CALCIUM TOTAL SCREENING G0202 [facility] 4 [facility] MAMMOGRAP INC INC HY JOSELUIS INCL CAD WHEN PERFORMD COMPUTER- 48578 [facility] AIDED 4 [facility] DETECTION INC INC SCREENING MAMMOGRAP HY BASIC 50896 [facility] METABOLIC 4 ANIBAL ANIBAL PANEL HOLDINGS HOLDINGS CALCIUM TOTAL DETERMINA 01277 [facility] SCIFRES TION 4 VISION ANG REFRACTIV CENTER E STATE OPH[facility] 98549 [place] SCIFRES MEDICAL 4 VISION ANG XM&EVAL CENTER COMPRE NEW PT 1/> VST DUPLEX 70636 [place] SCAN 4 MEDICAL TIM EXTRACRAN IMAGING IAL ART ASS COMPL BI STUDY BASIC 92664 [facility] METABOLIC 4 ANIBAL ANIBAL PANEL HOLDINGS HOLDINGS CALCIUM TOTAL BASIC 77495 LAB [facility] PRI[facility] METABOLIC 3 ANIBAL ANIBAL PANEL HOLDINGS HOLDINGS CALCIUM TOTAL DUPLEX 79761 [facility] SCAN 3 [facility] EXTRACRAN INC INC IAL ART COMPL BI STUDY MRI 50632 [facility] SPINAL 2 [facility] CANAL INC INC CERVICAL W/O CONTRAST MATRL 3D 13671 [facility] RENDERING 2 [facility] W/INTERP INC INC & POSTPROCE SS SUPERVISI ON LOCM Q9967 [facility] 300-399 2 [facility] MG/ML INC INC IODINE CONCENTRA TION PER ML CREATININ 61181 [facility] E BLOOD 2 [place] [address] [facility] UREA 2 [facility] NITROGEN INC INC QUANTITAT KIKA COLLECTIO 83234 [facility] N VENOUS 2 [facility] BLOOD INC INC VENIPUNCT URE BRNCDILAT 85927 [facility] RSPSE 2 [facility] SPMTRY INC INC PRE&POST- BRNCDILAT ADMN PRESSURIZ 01670 [facility] ED/NONPRE 2 [facility] SSURIZED INC INC INHALATIO N TREATMENT GAS 52052 [facility] DILUT/WAS 2 [facility] HOUT LUNG INC INC VOL W/WO DISTRI[place] [address] [facility] ANGIOGRAP 2 [facility] HY NECK INC INC W/CONTRAS T/[place] [address] [facility] ANGIOGRAP 1 [facility] HY NECK INC INC W/CONTRAS T/NONCONT RAST LOCM Q9967 [facility] 300-399 1 [facility] MG/ML INC INC IODINE CONCENTRA TION PER ML ECHO 22737 [facility] TTHRC R-T 1 [facility] 2D INC INC W/WOM-MOD E COMPL SPEC&COLR D THERAPEUT 37254 [facility] ACTVITY 1 [facility] DIRECT PT INC INC CONTACT EACH 15 MIN PHYSICAL 80194 [facility] THERAPY 1 [facility] EVALUATIO INC INC N Encounters Encounter Start End Date Code Location Performer Type Date OFFICE 98892 [facility] 7 7 [place] [facility] 15 G [facility] UNIVERSIT - OTHER 6 6 [facility] [address] OFFICE [address] [facility] 6 6 SURGICAL DILIA ASSOCIATE MINUTES S OFFICE 65503 [facility] 6 6 [place] [facility]IS[facility] MEDICAL 15 G [facility] J[facility] - 6 6 [facility] OUTPATIEN [facility] [address] JOSUÉ - 6 6 [facility] OUTPATIEN [facility] - [address] [facility] T OFFICE 18046 [facility] OUTPATIEN 6 6 [facility] T VISIT MEDICAL 25 G MINUTES OFFICE 66966 A Sundar VINES OUTPATIEN 6 6 [facility] RESENDIZ T VISIT PSC 25 [facility] [place] [facility] 69938 A Sundar Zhang OUTPATIEN 5 5 [facility] MATHEWS T VISIT PSC 15 MINUTES OFFICE 95665 A Sundar VINES A OUTPATIEN 4 4 M[facility]ER MATHEWS T VISIT [facility] 25 MINUTES HOSPITAL [facility] - 4 4 [facility] - 4 4 [facility]PATI[facility] - 3 3 [facility] T OFFICE 23552 [place] [facility] 2 2 MEDICAL GRE T NEW 45 SERV MINUTES [facility] JOSU[facility] - 2 2 [facility] OUTPATIEN [facility] OFFICE 80362 [facility] EVELIO OUTPATIEN 2 2 CARDIOTHO T VISIT RACIC 10 SURGI [facility] JSOUÉ - 2 2 [facility] OUTPATI[facility] T OFFICE 04542 [facility] OUTPATIEN 2 2 NEUROLOGY YA T VISIT CENTER 15 KHADIJAH MINUTES OFFICE 61212 [facility] EVELIO OUTPATIEN 2 2 CARDIOTHO T VISIT RAC 10 SURGI [facility] JOSU[facility] - 1 1 [facility] OUTPATI[facility] T OFFICE 50466 [facility]PATIEN 1 1 NEUROLOGY YA T VISIT CENTER 25 KHADIJAH MINUTES HOSPITAL [facility] - 1 1 [facility] OUTPATIEN [facility] JOSU[facility] - 1 1 [facility] OUTPATIEN INC T
--- OUTSIDE RECORDS SUMMARY | 2017-05-11 16:15 | External Medical Summary Rpt ---
Author Author SHERI Jennings, SHERI Jennings Organization [employer] Address Unknown Phone Unavailable
--- OUTSIDE RECORDS SUMMARY | 2017-05-11 16:15 | External Medical Summary Rpt ---
Author Author , Organization [employer] Address Unknown Phone Unavailable Care Team Providers Care Behaviorist Name Role Phone A Sundar VINES MD [facility], A Unavailable Unavailable Sundar VINES MD P[facility] Unavailable Unavailable [facility] Unavailable Unavailable [facility] Un[facility] Unavailable [facility], [facility] Un[facility] Unavailable [facility], [facility] Unavailable Unavailable MANSOOR TIM, Unavailable Unavailable [facility]SO[facility] TIM [facility] Un[facility] Unavailable [facility], [facility], Unavailable Unavailable [facility] EVERMAN, EVERMAN Unavailable Unavailable EVERMAN JACOB, EVERMAN Unavailable Unavailable JACOB FALLUJI CLAIRE, FALLUJI Unavailable Unavailable [facility] Un[facility] Un[facility], [facility] LÁZARO CASIANO, LÁZARO CASIANO Unavailable Unavailable [facility] Unavailable Unavailable MEDICAL G, [facility] Un[facility], [facility]available [facility]available [facility], [facility] Unavailable [facility]available [facility], [facility] SCIF[facility] ANG, SCIFRES Unavailable Unavailable ANG [facility] Unavailable Un[facility], [facility] Unavailable Unavailable [facility], Unavailable Unavailable [facility] SHANDA DILIA, SHANDA Unavailable Unavailable [facility] Un[facility] Unavailable [facility], [facility], Unavailable Unavailable [facility] WHANG EVELIO, WHANG EVELIO Unavailable Unavailable SHAIKH [...] OF GAIT AND MOBILITY R293 ABNORMAL 11-23-2016 [facility] MEDICAL G [id number] MUSCLE 07-20-2016 [facility] RIGHT THIGH M6281 MUSCLE 07-20-2016 [facility] GENERALIZED PSC Z0000 ENCOUNTER 07-20-2016 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 UNS EQUIPME M545 LOW BACK 07-07-2016 [facility] Z9181 HISTORY OF 07-07-2016 [facility] M5126 OT 05-06-2016 [facility] DISPLACEMEN T LUMBAR RGN M5136 OT 05-06-2016 [facility] DEGEN LUMBAR REGION G250 ESSENTIAL 04-29-2016 [facility] [id number] PAIN IN 04-07-2016 [facility] M22938 PAIN IN 04-07-2016 [facility] R42 DIZZINESS 03-05-2016 [facility] Z720 TOBACCO USE 03-05-2016 [facility] C29661 OTHER LONG 03-05-2016 [facility] CURRENT INC DRUG THERAPY A67606 PRESENCE OF 03-05-2016 [facility] CARDIAC INC IMPLANTS AND GRAFTS I340 NONRHEUMATI 02-27-2016 [facility] G INSUFFICIEN CY R0609 OTHER FORMS 02-27-2016 [facility] DYSPNEA HEALTH MEDICAL G I779 DISORDER OF 01-14-2016 Leatha TUCKER MD PSC AND ARTERIOLES UNSPECIFIED 2724 OTHER AND 07-16-2015 [facility] UNSPECIFIED AN[facility]AL HOLDINGS HYPERLIPIDE AGUILAR 4011 ESSENTIAL 07-16-2015 [facility] HYPERTENSIO ANIBAL N, BENIGN HOLDINGS V851 BODY MASS 07-16-2015 [facility] INDEX ANIBAL [facility] 19-24 ADULT 64859 DENTAL 04-15-2015 [facility] CARIES OF ANIBAL ROOT HOLDINGS SURFACE 7242 LUMBAGO 04-15-2015 [facility] AN[facility]INGS 86895 OCCLUSION&S 02-17-2015 [facility] W/O MENTION INFARCT 4019 UNSPECIFIED 02-14-2015 [facility] HYPERTENSIO N V1582 PERS HX 02-14-2015 [facility] TOBACCO USE [facility] PRESENTING [facility] 77119 COR 01-15-2015 A Sundar VINES ATHEROSLERO PSC UNSPEC TYPE VESSEL JACKSON/LESLEE T 4479 UNSPECIFIED 01-15-2015 A Sundar VINES DISORDERS PSC OF ARTERIES AND ARTERIOLES 7030 INGROWING 07-16-2014 A Sundar VINES NAIL PSC V0382 NEED PROPH 07-16-2014 A Sundar VINES VACCINATION PSC AGAINST STREP PNEUMONE V0481 NEED 07-16-2014 A Sundar VINES PROPHYLACTI PSC C VACCINATION &INOCULATIO N FLU V7612 OTHER 04-29-2014 [facility] MAMMOGRAM INC 08418 NUCLEAR 03-14-2014 [facility] 58225 OCCL&STENOS 02-14-2014 [facility]BILAT [facility] PRECERBRL IMAGING ASS ART W/O INFARCT 86105 UNSPECIFIED 09-04-2012 [facility] S 7231 CERVICALGIA 07-21-2012 [facility] 441 AORTIC 01-26-2012 [facility]EURYSM [facility] DISSECTION 90344 SHORTNESS 01-26-2012 [facility]ATH [facility] INC 7804 DIZZINESS 12-01-2011 [facility] 4359 UNSPECIFIED 11-03-2011 [facility]ENT [facility] CEREBRAL INC ISCHEMIA 7852 UNDIAGNOSED 09-20-2011 [facility] CARDIAC [facility] MURMURS INC 7812 ABNORMALITY 09-07-2011 [facility]IT [facility] INC V571 OTHER 09-07-2011 [facility] THERAPY INC Immunization Name Date Route CVX Reacti Commen Provid Is Given on t er Refuse d PCV13 MOHINDER Ng VACCIN 2013 A E FOR INTRAM USCULA R USE Procedures Procedure DOS Code Location Performer Comment BASIC 84508 [facility] METABOLIC 7 ANIBAL ANIBAL PANEL HOLDINGS HOLDINGS CALCIUM TOTAL COMMODE E0163 [facility] CHAIR 7 MOBILE OR STATIONAR Y W/FIXED ARMS BIOPSY [facility] MUSCLE 6 SURGICAL [place] [address] [facility] SURG 6 Y Y PATHOLOGY [facility] GROSS&AB ROSCOPIC EXAM ANES 14185 ANESTHESI LÁZARO STEPHENIE NERVE 6 A MUSC ASSOCIATE TENDON S PSC FASCIA & BURSAE UPPER LEG SPCL STN 92789 [facility] 2 I&R 6 Y Y EXCPT [facility] MICROORG/ ENZYME/IM CYT SPECIAL 20398 [facility] STAIN I&R 6 Y Y [facility] III ENZYME CONSITUEN TS COLLECTIO 71493 [facility] N VENOUS [address] [place] [address] BLOOD VENIPUNCT URE C-REACTIV 50753 [facility] E PROTEIN [address] [place] [address] CREATINE 45066 [facility] KINASE [address] [place] [address] TOTAL SEDIMENTA 44684 [facility] TION RATE [address] [place] [address] RBC NON-AUTOM ATED BASIC 64608 [facility] METABOLIC 6 ANIBAL ANIBAL PANEL HOLDINGS HOLDINGS CALCIUM TOTAL SEAT E0156 [facility] MATT ATTACHMEN 6 HOME HOME T W[facility]ICAL MEDICAL EQUIPME EQUIPME WALKER E0143 MATT MATT FOLDING 6 HOME HOME WHEELED MEDICAL MEDICAL ADJUSTABL EQUIPME EQUIPME E/FIXED HEIGHT NERVE [address] [facility] [facility] [place] CONDUCTIO 6 [facility] JACOB N STUDIES MEDICAL 7-8 G STUDIES NEEDLE 35213 [facility] EMG EA 6 NE [facility]ALTH JACOB EXTREMTY MEDICAL W/PARASPI G NL AREA COMPLETE 3D 12333 [facility] RENDERING 6 MEDICAL W/INTERP IMAGING & ASS POSTPROCE SS SUPERVISI ON MRI 76446 [facility] SPINAL 6 MEDICAL CANAL IMAGING LUMBAR ASS W/O CONTRAST MATERIAL PROTEIN 74004 [facility] ELECTROPH [address] [place] [address] ORETIC FRACTJ&[place] [address] [facility] THIAMINE[address] VITAMIN B-1 CYANOCOBA 01310 [facility] JERICHO [address] [place] [address] VITAMIN B-12 [place] [address] [place] [address] [facility] FOLIC [address] [place] [address] ACID SERUM COMPREHEN 57557 [facility] SIVE [address] [place] [address] METABOLIC PANEL COLLECTIO 29856 [facility] N VENOUS [address] [place] [address] BLOOD VENIPUNCT URE IMMUNOFIX [address] ELECTROPH ORESIS SERUM BASIC 03777 [facility] PR[facility]ET[facility] METABOLIC 6 ANIBAL ANIBAL PANEL HOLDINGS HOLDINGS CALCIUM TOTAL RADIOLOGI 93808 [facility] C 6 [facility] EXAMINATI INC INC ON FEMUR MINIMUM 2 VIEWS RADIOLOGI 27841 [facility] C 6 MEDICAL EXAMINATI IMAGING ON FEMUR ASS 1 VIEW RADEX HIP 63399 [facility] 6 MEDICAL UNILATERA IMAGING L WITH ASS PELVIS 1 VIEW RADEX HIP 37029 [facility] 6 [facility]OS[facility] UNILATERA INC INC L WITH PELVIS 2-3 VIEWS ECHO 52125 [facility] TTHRC R-T 6 MEM HOS[facility] 2D INC INC W/WOM-MOD E COMPL SPEC&COLR D DUPLEX 13794 [facility] SCAN 6 MEDICAL EXTRACRAN IMAGING IAL ART ASS COMPL BI STUDY BASIC 86819 [facility] METABOLIC 6 ANIBAL ANIBAL PANEL HOLDINGS HOLDINGS CALCIUM TOTAL LIPOPROTE 39298 A Sundar VINES IN DIR 6 MOHINDER RESENDIZ CLAUDIO [place] [address] A Sundar VINES TRIGLYCER 6 MOHINDER RESENDIZ IDES PSC TRANSFERA 95840 A Sundar VINES SE 6 MOHINDER RESENDIZ ASPARTATE PSC AMINO AST SGOT TRANSFERA 40310 A Sundar VINES SE 6 MOHINDER RESENDIZ ALANINE PSC AMINO ALT SGPT GLUCOSE 13788 A Sundar VINES QUANTITAT 6 MOHINDER RESENDIZ KIKA BLOOD PSC XCPT REAGENT STRIP CHOLESTER 48778 A Sundar VINES OL 6 MOHINDER RESENDIZ SERUM/WHO PSC LE BLOOD TOTAL BASIC 04994 [facility] METABOLIC 5 ANIBAL ANIBAL PANEL HOLDINGS HOLDINGS CALCIUM TOTAL BASIC 19619 [facility] METABOLIC 5 ANIBAL ANIBAL PANEL HOLDINGS HOLDINGS CALCIUM TOTAL DUPLEX 29308 [facility] 5 [facility] EXTRACRAN MEDICAL IAL ART G COMPL BI STUDY DUPLEX 55248 [facility] SCAN 5 [facility] EXTRACRAN IAL ART COMPL BI STUDY LIPOPROTE 15244 A Sundar Zhang IN DIR 5 MOHINDER MATHEWS CLAUDIO HIGH PSC DENSITY CHOLESTER OL TRANSFERA 12357 A Sundar Zhang SE 5 MOHINDER MATHEWS ASPARTATE PSC AMINO AST SGOT TRANSFERA 70376 A Sundar Zhang SE 5 MOHINDER MATHEWS [place] [address] A Sundar Zhang TRIGLYCER 5 MOHINDER MATHEWS IDES PSC COLLECTIO 23503 A Sundar Zhang N VENOUS 5 MOHINDER MATHEWS BLOOD PSC VENIPUNCT URE BASIC 22575 [facility] METABOLIC 5 ANIBAL ANIBLA PANEL HOLDINGS HOLDINGS CALCIUM TOTAL CHOLESTER 01254 A Sundar Zhang OL 5 MOHINDER MATHEWS SERUM/WHO PSC LE BLOOD TOTAL BASIC 58450 [facility] METABOLIC 4 ANIBAL ANIBAL PANEL HOLDINGS HOLDINGS CALCIUM TOTAL INFLUENZA Q2038 A Sundar Zhang VACC 4 MOHINDER MATHEWS SPLIT PSC VIRUS 3 YRS & > IM FLUZONE PCV13 27530 A Sundar Zhang VACCINE 4 MOHINDER MATHEWS FOR PSC INTRAMUSC ULAR USE ADMINISTR G0008 A Sundar Zhang ATION OF 4 MOHINDER MATHEWS [place] [address] A Sundar Zhang TRIGLYCER 4 MOHINDER MATHEWS IDES PSC TRANSFERA 04956 A Sundar Zhang SE 4 MOHINDER MATHEWS ALANINE PSC AMINO ALT SGPT TRANSFERA 00342 A Sundar Zhang SE 4 MOHINDER MATHEWS ASPARTATE PSC AMINO AST SGOT LIPOPROTE 59161 A Sundar Zhang IN DIR 4 MOHINDER MATHEWS CLAUDIO HIGH PSC DENSITY CHOLESTER OL GLUCOSE 83245 A Sundar Zhang QUANTITAT 4 MOHINDER MATHEWS KIKA BLOOD PSC XCPT REAGENT STRIP CHOLESTER 11680 A Sundar Zhang OL 4 MOHINDER MATHEWS SERUM/WHO PSC LE BLOOD TOTAL ADMINISTR G0009 A Sundar Zhang ATION OF 4 MOHINDER MATHEWS PNEUMOCOC PSC SUSAN VACCINE BASIC 90023 [facility] METABOLIC 4 ANIBAL ANIBAL PANEL HOLDINGS HOLDINGS CALCIUM TOTAL COMPUTER- 19719 [facility]ON AIDED 4 [facility] DETECTION INC INC SCREENING MAMMOGRAP HY SCREENING G0202 [facility] MOSES 4 [facility] MAMMOGRAP INC INC HY JOSELUIS INCL CAD WHEN PERFORMD BASIC 54664 [facility] METABOLIC 4 ANIBAL ANIBAL PANEL HOLDINGS HOLDINGS CALCIUM TOTAL OPHTH 68504 [place] SCIFRES MEDICAL 4 VISION ANG XM&EVAL CENTER COMPRE NEW PT 1/> VST DETERMINA 68347 [place] SCIFRES TION 4 VISION ANG REFRACTIV CENTER E STATE DUPLEX 25554 [facility] SCAN 4 MEDICAL TIM EXTRACRAN IMAGING IAL ART ASS COMPL BI STUDY BASIC 56859 [facility] METABOLIC 4 ANIBAL ANIBAL PANEL HOLDINGS HOLDINGS CALCIUM TOTAL BASIC 17752 LAB [facility] METABOLIC 3 ANIBAL ANIBAL PANEL HOLDINGS HOLDINGS CALCIUM TOTAL DUPLEX 80055 [facility] SCAN 3 [facility] EXTRACRAN INC INC IAL ART COMPL BI STUDY 3D 09818 [facility] RENDERING 2 [facility] W/INTERP INC INC & POSTPROCE SS SUPERVISI ON MRI 59144 [facility] SPINAL 2 [facility] CANAL INC INC CERVICAL W/O CONTRAST MATRL BRNCDILAT 23266 [facility] RSPSE 2 [facility] SPMTRY INC INC PRE&POST- BRNCDILAT ADMN PRESSURIZ 19443 [facility] ED/NONPRE 2 [facility] SSURIZED INC INC INHALATIO N TREATMENT CREATININ 70675 [facility] E BLOOD 2 [place] [address] [facility] ANGIOGRAP 2 [facility] HY NECK INC INC W/[place] [address] [facility] UREA 2 [facility] NITROGEN INC INC QUANTITAT KIKA GAS 71352 [facility] DILUT/WAS 2 [facility] HOUT LUNG INC INC VOL W/WO DISTRIB VENT&V LOCM Q9967 [facility] 300-399 2 [facility] MG/ML INC INC IODINE CONCENTRA TION PER ML COLLECTIO 95346 [facility] N VENOUS 2 [facility] BLOOD INC INC VENIPUNCT URE LOCM Q9967 [facility] 300-399 1 [facility] MG/ML INC [place] [address] [facility] ANGIOGRAP 1 [facility] HY NECK INC INC W/CONTRAS T/NONCONT RAST ECHO 76953 [facility] TTHRC R-T 1 [facility] 2D INC INC W/WOM-MOD E COMPL SPEC&COLR D THERAPEUT 05983 [facility] ACTVITY 1 [facility] DIRECT PT INC INC CONTACT EACH 15 MIN PHYSICAL 69034 [facility] THERAPY 1 [facility] EVALUATIO INC INC N Encounters Encounter Start End Date Code Location Performer Type Date OFFICE 36522 [facility] G [facility] OTHER 6 6 Y HOSPITAL OFFICE 42091 [facility] 6 6 [facility] [address] OFFICE [address] [facility] 6 6 [facility] T [facility] 15 G [facility] 6 6 [facility]IEN [facility] [address] [facility] - 6 6 [facility] 6 [facility] OFF[facility] 97326 [facility] 6 6 [facility] T VISIT MEDICAL 25 G MINUTES OFFICE 07623 A Sundar VINES OUTPATIEN 6 6 MOHINDER RESENDIZ T VISIT PSC 25 MINUTES [facility] [place] [address] 5 HOSPITAL OUTPATIEN T OFFICE 07420 A Sundar VINES A OUTPATIEN 5 5 MOHINDER MATHEWS T VISIT PSC 15 MINUTES OFFICE 20052 A C MOHINDER A OUTPATIEN 4 4 MOHINDER MATHEWS T VISIT [facility] 25 MINUTES HOSPITAL [facility] - 4 4 [facility] OUTPATIEN [facility] T [facility] - 4 4 [facility]IEN [facility] - 3 3 [facility] OUTPATIEN INC T OFFICE 66489 [facility] 2 2 MEDICAL GRE T NEW 45 SERV MINUTES [facility] - 2 2 [facility] OUTPATIEN INC T OFFICE 80614 [facility] WHANG EVELIO OUTPATIEN 2 2 CARDIOTHO T VISIT RACIC 10 SURGI MINUTES [facility] - 2 2 [facility] OUTPATIEN INC T OFFICE 27983 [facility] YURIDIA OUTPATIEN 2 2 NEUROLOGY YA T VISIT CENTER 15 KHADIJAH MINUTES OFFICE 47191 [facility] WHANG EVELIO OUTPATIEN 2 2 CARDIOTHO T VISIT RACIC 10 SURGI MINUTES [facility] - 1 1 [facility] OUTPATIEN INC T OFFICE 25047 Y[facility]ISM YURIDIA OUTPATIEN 1 1 NEUROLOGY YA T VISIT CENTER 25 KHADIJAH MINUTES [facility] - 1 1 [facility] OUTPATIEN INC T HOSPITAL [facility] - 1 1 [facility] OUTPATIEN INC T
--- OUTSIDE RECORDS SUMMARY | 2017-05-11 16:15 | External Medical Summary Rpt ---
Author Author , Organization [employer] Address Unknown Phone Unavailable Care Team Providers Care Rough Rice Grader Name Role Phone A Sundar VINES MD [facility], A Unavailable Unavailable Sundar VINES MD P[facility] Unavailable Unavailable [facility] Unavailable Unavailable [facility] Unavailable Unavailable [facility], [facility] Un[facility] Unavailable [facility] ARROY[facility] ALL, ARROYO ALL Unavailable Unavailable MANSOOR TIM, Unavailable Unavailable [facility]SO[facility] TIM [facility] Unavailable Unavailable [facility], [facility] YURIDIA YA, Unavailable Unavailable [facility]A EVERMAN, EVERMAN Unavailable Unavailable EVERMAN JACOB, EVERMAN Unavailable Unavailable JACOB FALLUJI CLAIRE, FALLUJI Unavailable Unavailable [facility] Un[facility] Un[facility], [facility] LÁZARO CASIANO, LÁAZRO CASIANO Unavailable Unavailable [facility] Unavailable Unavailable MEDICAL G, [facility], [facility] Unavailable Unavailable [facility], [facility] Unavailable Unavailable [facility], [facility] SCIF[facility] ANG, SCIFRES Unavailable Unavailable ANG [facility] Unavailable Unavailable [facility], [facility] Unavailable Unavailable [facility], [facility], Unavailable Unavailable [facility] SHANDA DILIA, SHANDA Unavailable Unavailable DILIA [facility] Unavailable Unavailable ASSOC[facility], [facility], Unavailable Unavailable [facility] WHANG EVELIO, WHANG EVELIO [...] OF GAIT AND MOBILITY R293 ABNORMAL 11-23-2016 [facility] POSTURE HEALTH MEDICAL G [id number] MUSCLE 07-20-2016 [facility] RIGHT THIGH M6281 MUSCLE 07-20-2016 [facility] GENERALIZED PSC Z0000 ENCOUNTER 07-20-2016 [facility] MED EXAM W/O ABNORMAL FIND E5111 DRY 07-15-2016 [facility] [id number] CONTUSION 07-14-2016 [facility] UNS FINGER ANIBAL W/O DAMAGE HOLDINGS NAIL INITIAL ENC Z23 ENCOUNTER 07-14-2016 [facility] FOR ANIBAL IMMUNIZATIO HOLDINGS N J449 CHRONIC 07-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 UNS EQUIPME M545 LOW BACK 07-07-2016 [facility] Z9181 HISTORY OF 07-07-2016 [facility] M5126 OT 05-06-2016 [facility] DISPLACEMEN T LUMBAR RGN M5136 OT 05-06-2016 [facility] DEGEN LUMBAR REGION G250 ESSENTIAL 04-29-2016 [facility] [id number] PAIN IN 04-07-2016 [facility] O28107 PAIN IN 04-07-2016 [facility] R42 DIZZINESS 03-05-2016 [facility] Z720 TOBACCO USE 03-05-2016 [facility] S56562 OTHER LONG 03-05-2016 [facility] CURRENT INC DRUG THERAPY Y58528 PRESENCE OF 03-05-2016 [facility] CARDIAC INC IMPLANTS AND GRAFTS I340 NONRHEUMATI 02-27-2016 [facility] INSUFFICIEN CY R0609 OTHER FORMS 02-27-2016 [facility] I779 DISORDER OF 01-14-2016 Leatha TUCKER MD PSC AND ARTERIOLES UNSPECIFIED 2724 OTHER AND 07-16-2015 [facility] UNSPECIFIED ANIBAL HOLDINGS HYPERLIPIDE AGUILAR 4011 ESSENTIAL 07-16-2015 [facility] HYPERTENSIO ANIBAL N, BENIGN HOLDINGS V851 BODY MASS 07-16-2015 [facility] INDEX ANIBAL [facility] 19-24 ADULT 23798 DENTAL 04-15-2015 [facility] CARIES OF ANIBAL ROOT HOLDINGS SURFACE 7242 LUMBAGO 04-15-2015 [facility] ANIBAL HOLDINGS 15178 OCCLUSION&S 02-17-2015 [facility] CAROTID ART MEDICAL G W/O MENTION INFARCT 4019 UNSPECIFIED 02-14-2015 [facility] HYPERTENSIO N V1582 PERS HX 02-14-2015 [facility] TOBACCO USE [facility] PRESENTING [facility] 67458 COR 01-15-2015 A Sundar VINES ATHEROSLERO PSC UNSPEC TYPE VESSEL RED DEVIL/LESLEE T 4479 UNSPECIFIED 01-15-2015 A Sundar VINES DISORDERS PSC OF ARTERIES AND ARTERIOLES 7030 INGROWING 07-16-2014 A Sundar VINES NAIL PSC V0382 NEED PROPH 07-16-2014 A Sundar VINES VACCINATION PSC AGAINST STREP PNEUMONE V0481 NEED 07-16-2014 A Sundar VINES PROPHYLACTI PSC C VACCINATION &INOCULATIO N FLU V7612 OTHER 04-29-2014 [facility] MAMMOGRAM INC 88404 NUCLEAR 03-14-2014 [facility] 08536 OCCL&STENOS 02-14-2014 [place] [facility]AT [facility] PRECERBRL IMAGING ASS ART W/O INFARCT 73624 UNSPECIFIED 09-04-2012 [facility] S 7231 CERVICALGIA 07-21-2012 [facility] 441 AORTIC 01-26-2012 [facility] DISSECTION 56626 SHORTNESS 01-26-2012 [facility] 7804 DIZZINESS 12-01-2011 [facility] 4359 UNSPECIFIED 11-03-2011 [facility] TRANSIENT [...] Procedure DOS Code Location Performer Comment BASIC 67416 [facility] METABOLIC 7 ANIBAL ANIBAL PANEL HOLDINGS HOLDINGS CALCIUM TOTAL COMMODE E0163 [facility] CHAIR 7 MOBILE OR STATIONAR Y W/FIXED ARMS BIOPSY [facility] MUSCLE 6 SURGICAL [place] [address] [facility] SURG 6 Y Y PATHOLOGY [facility] GROSS&AB ROSCOPIC EXAM ANES 80725 ANESTHESI LÁZARO STEPHENIE NERVE 6 A MUSC ASSOCIATE TENDON S PSC FASCIA & BURSAE UPPER LEG SPCL STN [address] [facility] 2 I&R 6 Y Y EXCPT [facility] MICROORG/ ENZYME/IM CYT SPECIAL [address] [facility] STAIN I&R 6 Y Y [facility] III ENZYME CONSITUEN TS COLLECTIO 64174 [facility] N VENOUS [address] [place] [address] BLOOD VENIPUNCT URE C-REACTIV 16291 [facility] E PROTEIN [address] [place] [address] CREATINE 19566 [facility] KINASE [address] [place] [address] TOTAL SEDIMENTA 69844 [facility] TION RATE [address] [place] [address] RBC NON-AUTOM ATED BASIC 46722 [facility] METABOLIC 6 ANIBAL ANIBAL PANEL HOLDINGS HOLDINGS CALCIUM TOTAL SEAT E0156 MATT MATT ATTACHMEN 6 HOME HOME T [facility]ICAL EQUIPME EQUIPME WALKER E0143 MATT MATT FOLDING 6 HOME HOME WHEELED MEDICAL MEDICAL ADJUSTABL EQUIPME EQUIPME E/FIXED HEIGHT NERVE 76790 [facility] ANNTRURO CONDUCTIO 6 NE HEALTH JACOB N STUDIES MEDICAL 7-8 G STUDIES NEEDLE 49490 [facility] EMG EA 6 NE HEALTH JACOB EXTREMTY MEDICAL W/PARASPI G NL AREA COMPLETE 3D 95911 [facility] RENDERING 6 MEDICAL W/INTERP IMAGING & ASS POSTPROCE SS SUPERVISI ON MRI 79483 [facility] SPINAL 6 MEDICAL CANAL IMAGING LUMBAR ASS W/O CONTRAST MATERIAL PROTEIN 86119 [facility] ELECTROPH [address] [place] [address] ORETIC FRACTJ&[place] [address] [facility] THIAMINE[address] VITAMIN B-1 CYANOCOBA 93468 [facility] JERICHO [address] [place] [address] VITAMIN B-12 [place] [address] [place] [address] [facility] FOLIC [address] [place] [address] ACID SERUM COMPREHEN 80113 [facility] SIVE [address] [place] [address] METABOLIC PANEL COLLECTIO 41752 [facility] N VENOUS [address] [place] [address] BLOOD VENIPUNCT URE IMMUNOFIX [address] ELECTROPH ORESIS SERUM BASIC 03944 [facility] METABOLIC 6 ANIBAL ANIBAL PANEL HOLDINGS HOLDINGS CALCIUM TOTAL RADIOLOGI 70170 [facility] C 6 [facility] EXAMINATI INC INC ON FEMUR MINIMUM 2 VIEWS RADIOLOGI 94955 GENE ARROY[facility] ALL C 6 MEDICAL EXAMINATI IMAGING ON FEMUR ASS 1 VIEW RADEX HIP 52761 GENE [facility] ALL 6 MEDICAL UNILATERA IMAGING L WITH ASS PELVIS 1 VIEW RADEX HIP 34696 [facility] 6 [facility]OS[facility] UNILATERA INC INC L WITH PELVIS 2-3 VIEWS ECHO 09644 [facility] TTHRC R-T 6 [facility]OS[facility] 2D INC INC W/WOM-MOD E COMPL SPEC&COLR D DUPLEX 36933 [facility]ENE [facility] ALL SCAN 6 MEDICAL EXTRACRAN IMAGING IAL ART ASS COMPL BI STUDY BASIC 33502 [facility] METABOLIC 6 ANIBAL ANIBAL PANEL HOLDINGS HOLDINGS CALCIUM TOTAL LIPOPROTE 15840 A Sundar VINES IN DIR 6 [facility] RESENDIZ CLAUDIO [place] [address] A Sundar VINES TRIGLYCER 6 [facility] RESENDIZ IDES PSC TRANSFERA 83194 A Sundar VINES SE 6 [place] RESENDIZ ASPARTATE PSC AMINO AST SGOT TRANSFERA 40986 A Sundar VINES SE 6 M[place] RESENDIZ ALANINE PSC AMINO ALT SGPT GLUCOSE 82992 A Sundar VINES QUANTITAT 6 MOHINDER RESENDIZ KIKA BLOOD PSC XCPT REAGENT STRIP CHOLESTER 50754 A Sundar VINES OL 6 MOHINDER RESENDIZ SERUM/WHO PSC LE BLOOD TOTAL BASIC 60244 [facility] METABOLIC 5 ANIBAL ANIBAL PANEL HOLDINGS HOLDINGS CALCIUM TOTAL BASIC 49236 [facility] PRIET[facility] METABOLIC 5 ANIBAL ANIBAL PANEL HOLDINGS HOLDINGS CALCIUM TOTAL DUPLEX 68787 [facility] SCAN 5 [facility] EXTRACRAN MEDICAL IAL ART G COMPL BI STUDY DUPLEX 70157 [facility] SCAN 5 [facility] EXTRACRAN IAL ART COMPL BI STUDY LIPOPROTE 24959 A Sundar Zhang IN DIR 5 MOHINDER MATHEWS CLAUDIO HIGH PSC DENSITY CHOLESTER OL TRANSFERA 99164 A Sundar Zhang SE 5 MOHINDER MATHEWS ASPARTATE PSC AMINO AST SGOT TRANSFERA 70479 A Sundar Zhang SE 5 MOHINDER MATHEWS [place] [address] A Sundar Zhang TRIGLYCER 5 MOHINDER MATHEWS IDES PSC COLLECTIO 91080 A Sundar Zhang N VENOUS 5 MOHINDER MATHEWS BLOOD PSC VENIPUNCT URE BASIC 60466 [facility] METABOLIC 5 ANIBAL ANIBAL PANEL HOLDINGS HOLDINGS CALCIUM TOTAL CHOLESTER 15849 A Sundar Zhang OL 5 MOHINDER MATHEWS SERUM/WHO PSC LE BLOOD TOTAL BASIC 28622 [facility] METABOLIC 4 ANIBAL ANIBAL PANEL HOLDINGS HOLDINGS CALCIUM TOTAL INFLUENZA Q2038 A Sundar Zhang VACC 4 MOHINDER MATHEWS SPLIT PSC VIRUS 3 YRS & > IM FLUZONE PCV13 25912 A Sundar Zhang VACCINE 4 MOHINDER MATHEWS FOR PSC INTRAMUSC ULAR USE ADMINISTR G0008 A Sundar Zhang ATION OF 4 MOHINDER MATHEWS [place] [address] A Sundar Zhang TRIGLYCER 4 MOHINDER MATHEWS IDES PSC TRANSFERA 43654 A Sundar Zhang SE 4 MOHINDER MATHEWS ALANINE PSC AMINO ALT SGPT TRANSFERA 71920 A Sundar Zhang SE 4 MOHINDRE MATHEWS ASPARTATE PSC AMINO AST SGOT LIPOPROTE 42310 A Sundar Zhang IN DIR 4 MOHINDER MATHEWS CLAUDIO HIGH PSC DENSITY CHOLESTER OL GLUCOSE 27844 A Sundar Zhang QUANTITAT 4 MOHINDER MATHEWS KIKA BLOOD PSC XCPT REAGENT STRIP CHOLESTER 98611 A Sundar Zhang OL 4 MOHINDER MATHEWS SERUM/WHO PSC LE BLOOD TOTAL ADMINISTR G0009 A Sundar Zhang ATION OF 4 MOHINDER MATHEWS PNEUMOCOC PSC SUSAN VACCINE BASIC 08591 [facility] METABOLIC 4 ANIBAL ANIBAL PANEL HOLDINGS HOLDINGS CALCIUM TOTAL COMPUTER- 05631 [facility]ON AIDED 4 [facility] DETECTION INC INC SCREENING MAMMOGRAP HY SCREENING G0202 [facility] MOSES 4 [facility]OS[facility] MAMMOGRAP INC INC HY JOSELUIS INCL CAD WHEN PERFORMD BASIC 65683 [facility] METABOLIC 4 ANIBAL ANIBAL PANEL HOLDINGS HOLDINGS CALCIUM TOTAL OPHTH 02051 [facility] 4 VISION ANG XM&EVAL CENTER COMPRE NEW PT 1/> VST DETERMINA 58630 [place] SCIFRES TION 4 VISION ANG REFRACTIV CENTER E STATE DUPLEX 92781 [place] [facility] SCAN 4 MEDICAL TIM EXTRACRAN IMAGING IAL ART ASS COMPL BI STUDY BASIC 87384 [facility] METABOLIC 4 ANIBAL ANIBAL PANEL HOLDINGS HOLDINGS CALCIUM TOTAL BASIC 40850 [facility] METABOLIC 3 ANIBAL ANIBAL PANEL HOLDINGS HOLDINGS CALCIUM TOTAL DUPLEX 58991 [facility] SCAN 3 [facility] EXTRACRAN INC INC IAL ART COMPL BI STUDY 3D 85309 [facility] RENDERING 2 [facility] W/INTERP INC INC & POSTPROCE SS SUPERVISI ON MRI 58107 [facility] SPINAL 2 [facility] CANAL INC INC CERVICAL W/O CONTRAST MATRL BRNCDILAT 41573 [facility] RSPSE 2 [facility] SPMTRY INC INC PRE&POST- BRNCDILAT ADMN PRESSURIZ 77451 [facility] ED/NONPRE 2 [facility] SSURIZED INC INC INHALATIO N TREATMENT CREATININ 12952 [facility] E BLOOD 2 [place] [address] [facility] ANGIOGRAP 2 [facility] HY NECK INC INC W/CONTR[place] [address] [facility] UREA 2 [facility] NITROGEN INC INC QUANTITAT KIKA GAS 30994 [facility] DILUT/WAS 2 [facility] HOUT LUNG INC INC VOL W/WO DISTRIB VENT&V LOCM Q9967 [facility] 300-399 2 [facility] MG/ML INC INC IODINE CONCENTRA TION PER ML COLLECTIO 46422 [facility] N VENOUS 2 [facility] BLOOD INC INC VENIPUNCT URE LOCM Q9967 [facility] 300-399 1 [facility] MG/ML [place] [address] [facility] ANGIOGRAP 1 [facility] HY NECK INC INC W/CONTRAS T/NONCONT RAST ECHO 36384 [facility] TTHRC R-T 1 [facility] 2D INC INC W/WOM-MOD E COMPL SPEC&COLR D THERAPEUT 04204 [facility] ACTVITY 1 [facility] DIRECT PT INC INC CONTACT EACH 15 MIN PHYSICAL 45314 [facility] THERAPY 1 [facility] EVALUATIO INC INC N Encounters Encounter Start End Date Code Location Performer Type Date OFFICE 70988 [facility] 7 7 ID HEALTH T VISIT MEDICAL 15 G [facility] UNIVERSIT - OTHER 6 6 Y HOSPITAL OFFICE 79012 [facility] 6 [facility] [address] OFFICE 76837 [facility] 6 6 [facility] T VISIT MEDICAL 15 G [facility] 6 [facility] OUTPATIEN [facility] [address] [facility] 6 6 [facility] OUTPATIEN [facility] OFF[facility] 33426 [facility] 6 6 [facility] T VISIT MEDICAL 25 G MINUTES OFFICE 41148 A Sundar VINES OUTPATIEN 6 6 [facility] RESENDIZ T VISIT PSC 25 MINUTES [facility] [place] [address] 5 HOSPITAL OUTPATIEN T OFFICE 15036 A Sunadr VINES A OUTPATIEN 5 5 MOHINDER MATHEWS T VISIT PSC 15 MINUTES OFFICE 11890 A C MOHINDER A OUTPATIEN 4 4 MOHINDER MATHEWS T VISIT [facility] 25 MINUTES HOSPITAL [facility] - 4 4 [facility] OUTPATIEN [facility] - 4 4 [facility] OUTPATIEN [facility] - 3 3 [facility] OUTPATIEN INC T OFFICE 71076 [place] OUTPATIEN 2 2 MEDICAL GRE T NEW 45 SERV MINUTES [facility] - 2 2 [facility] H[facility] OUTPATIEN INC T OFFICE 67776 [facility] WHANG EVELIO OUTPATIEN 2 2 CARDIOTHO T VISIT RACIC 10 SURGI MINUTES [facility] - 2 2 [facility] OUTPATIEN INC T OFFICE 41526 [facility]FU[facility] Y[facility] OUTPATIEN 2 2 NEUROLOGY YA T VISIT CENTER 15 KHADIJAH MINUTES OFFICE 53565 [facility]FU[facility]ISM WHANG EVELIO OUTPATIEN 2 2 CARDIOTHO T VISIT RACIC 10 SURGI MINUTES [facility] - 1 1 [facility] OUTPATIEN INC T OFFICE 25010 [facility]FU[facility] OUTPATIEN 1 1 NEUROLOGY YA T VISIT CENTER 25 KHADIJAH MINUTES [facility] - 1 1 [facility] OUTPATIEN INC T [facility]OSP[facility] - 1 1 [facility] OUTPATIEN INC T
--- OUTSIDE RECORDS SUMMARY | 2017-05-11 16:15 | External Medical Summary Rpt ---
Author Author , Organization [employer] Address Unknown Phone Unavailable Purpose Continuity of Care Document - 07-17-2001 through 2016 Immunization Name Date Route CVX Reacti Commen Provid Is Given on t er Refuse d Influe Histor Z77435 No nza, 2016 ical High Inform Dose ation - Source Unspec ified Td Histor H149 No (adult 2000 ical ), Inform adsorb ation ed - Source Unspec ified
--- OUTSIDE RECORDS SUMMARY | 2017-05-11 16:15 | External Medical Summary Rpt ---
Author Author , Organization [employer] Address Unknown Phone Unavailable Purpose Continuity of Care Document - 07-17-2001 through 2016 Immunization Name Date Route CVX Reacti Commen Provid Is Given on t er Refuse d Influe Histor E11099 No nza, 2016 ical High Inform Dose ation - Source Unspec ified Td Histor H149 No (adult 2000 ical ), Inform adsorb ation ed - Source Unspec ified
--- NOTE | 2017-05-11 16:41 | RADIOLOGY REPORT PS360 ---
CT HEAD W/O CONTRAST HISTORY: Headache following injury, contusion/hematoma FALL ORDERING PHYSICIAN: Alfonso Rush MD PATIENT AGE: 71 years COMPARISON: None TECHNIQUE: Axial images obtained without contrast. Brain and bone windows reviewed. FINDINGS: No midline shift, mass effect, intracranial hemorrhage, hydrocephalus, or extra-axial fluid collection is evident. There is generalized volume loss with hypoattenuation in periventricular region consistent with involutional changes of age. The calvarium has an unremarkable appearance. No mastoid effusion. The visualized paranasal sinuses are unremarkable. IMPRESSION: No acute intracranial pathology
--- NOTE | 2017-05-11 16:45 | RADIOLOGY REPORT PS360 ---
CT CERVICAL SPINE W/O CONT INDICATION: Neck pain following injury FALL ORDERING PHYSICIAN: Alfonso Rush MD PATIENT AGE: 71 years COMPARISON: None TECHNIQUE: Axial images are obtained without contrast. Sagittal and coronal reformatted images are reviewed as well. FINDINGS: There is slight reversal of the cervical lordosis nonspecific and may be due to patient positioning or muscle spasm. No acute fracture or dislocation. Multilevel cervical spondylosis is present with degenerative disc disease and facet arthritic change along with scattered areas of uncovertebral hypertrophy. This results in mild right-sided foraminal narrowing, degenerative disc disease C4-C5, severe degenerative disc disease C5-C6 with endplate hypertrophy. There are some fibrotic changes in the lung apices. No prevertebral soft tissue swelling apparent. IMPRESSION: 1. No acute fracture. 2. Cervical spondylosis as detailed above. 3. Reversal lordosis which may be due to patient positioning or muscle spasm.
--- NOTE | 2017-05-11 16:49 | RADIOLOGY REPORT PS360 ---
CT THORACIC SPINE W/O CONTRAST INDICATION: Back pain following injury FALL ORDERING PHYSICIAN: Alfonso Rush MD PATIENT AGE: 71 years COMPARISON: None TECHNIQUE: Axial images are obtained without contrast. Sagittal and coronal reformatted images are reviewed as well. FINDINGS: Normal alignment. No fracture or dislocation. There is generalized osteopenia and mild kyphosis. No lytic or blastic change. IMPRESSION: 1. No acute fracture. 2. Generalized osteopenia with mild kyphosis and minimal thoracic curvature convex left.
--- NOTE | 2017-05-11 16:53 | RADIOLOGY REPORT PS360 ---
CT LUMBAR SPINE W/O CONTRAST CLINICAL INDICATION: Lumbar pain following injury, low back pain FALL ORDERING PHYSICIAN: Alfonso Rush MD PATIENT AGE: 71 years COMPARISON: MRI of 05/06/2016 TECHNIQUE:Axial, sagittal, and coronal images are generated and reviewed without contrast FINDINGS: There is generalized osteopenia. No acute fracture or dislocation is evident. There is degenerative disc disease at L1-L2 there is bulging disc at L3-L4 and L4-L5 with mild degenerative disc disease at L4-L5 and mild bulging disc at L5-S1. There are some mild sclerosis of the mid aspect of the left SI joint. IMPRESSION: 1. No acute fracture. 2. Lumbar spondylosis with osteopenia
--- NOTE | 2017-05-11 18:04 | Emergency Room Report ---
History of Present Illness Time Seen by 155Darryn Presenting Problem in Triage Pt arrived:Wheelchair Presenting Problem:PT STATES SHE HAS BEEN OUT OF HER BP FOR THREE DAYS. STATES FALLING APPROX 1330 TODAY AND HIT HER HEAD AND FELL ON HER BACK. DENIES LOC. Onset of symptoms date/time:05/11/1703/23/1330 or onset unknown for: Treatment Prior to Arrival: PT STATES TAKING 500 MG TYLENOL AT [address] [employer] Provided by:SELF Sepsis Risk Assessment: Temp: 97.4 B/P: 152/76 MAP: 101 Pulse: 80 Resp: 20 Recent fever? N Clinical Suspician of Infection? N Mental Status: 1 - Regular (Normal Baseline) Sepsis Risk:Low Sepsis Risk Have you (or family members/close friends) recently traveled outside the [place]? N If Yes, where/when: Have you had exposure to infectious disease within the past month? N TB? Other? Specify: Comment The patient complains of a fall. She says that she has neuropathy in her legs and they frequently give out on her while she is walking causing her to fall. She has frequent falls, 9 times last year. She also fell on Tuesday 3 days ago and today. Today, she fell backwards when her feet went out from under her and she landed on her back. She then tried to get up and when she tried to get up she slipped back and hit her head on the walker. No loss of consciousness. She complains of head pain and neck pain pain in her entire back and RIGHT hip pain. She says she also hurt her RIGHT hip on Tuesday when she fell. She also says that she has been out of her blood pressure medicine for 3 days because she did not get it filled before the holiday. She has her prescriptions waiting for her at home. She says she has been having a throbbing headache because of high blood pressure. Her blood pressure today was 138/95 taken by her daughter after the fall. ALLERGIES Coded Allergies: Sulfa (Sulfonamide Antibiotics) (05/11/17) acetaminophen (From TYLENOL PM) (05/11/17) diphenhydramine (From TYLENOL PM) (05/11/17) Uncoded Allergies: CONTRAST DYE (05/11/17) Home Medications Reported Medications Aspirin 81 MG PO Diazepam 5 MG PO BID PROPRANOLOL HCL (Propranolol HCl) 40 MG PO BID MULTIVIT,THER IRON,CA,FA & MIN (Sm Therapeutic M Tablet) 1 TAB PO DAILY LISINOPRIL (Lisinopril) 20 MG PO DAILY CITALOPRAM HYDROBROMIDE (Citalopram HBr) 20 MG PO DAILY Atorvastatin Calcium (Lipitor 20MG) 20 MG PO DAILY OMEGA-3 FATTY ACIDS/FISH OIL (Fish Oil 1,000 MG Capsule) 1,000 MG PO BID THIAMINE HCL (Vitamin B-1) 100 MG PO DAILY Gabapentin (Neurontin) 400 MG PO TID History Medical History General CAD? Yes Angina: Yes IN: No Hypertension? Yes Hyperlipidemia? Yes CHF? No DVT? No PE? No COPD? Yes Asthma? Yes Anemia? No GERD? Yes Gastric ulcers? No GI Bleed? No Hernia? No Thyroid Problems? No Hypothyroidism? No CVA? No Seizures? No Diabetes? No Insulin Dependent: No Insulin Pump: No Home FSBS? No Renal Insuffiency? No End Stage Renal Disease? No UTI? Yes Stones? No BPH? No GB Disease: Yes Nephritic Syndrome? No Asplenia? No Hepatitis? No Sickle Cell Disease? No Arthritis? No Migraines? No Cataracts? No Glaucoma? No MRSA? No HIV? No TB? No Anxiety? Yes Depression? Yes Cancer? No Immunization Hx DT/Tetanus 999119 Surgical Hx Previous Surgery?Y Hysterect [place] LUMPECTOMY BACK SURGERY 2006 Tubal Ligation Cath w/Stent CAROTID STENT MUSCLE BIOPSY R THIGH Family History Family Hx Diabetes Yes CAD Yes Hypertension No Hyperlipidemia No Cancer Yes TB No Social History Smoking Hx Smoker: Current Every Day Smoker Tobacco: Yes Type Cigarettes Packs/day 1 1/2 - 2 Packs Alcohol Alcohol: No Review of Systems All Other Systems Reviewed and Negative Musculoskeletal back pain, joint pain, neck pain Psychiatric/Neurological headache Physical Exam Vital Signs Vital Signs Date Time Temp Pulse Resp B/P Pulse O2 O2 Flow FiO2 Ox Delivery Rate 05/11 1507 97.4 80 20 152/76 95 General Appearance normal appearance, WD/WN, no apparent distress, sitting upright in bed Eye Exam - bilateral eye normal exam, bilateral eye PERRL, bilateral eye EOMI Ear, Nose, Throat hearing grossly normal, normal ENT inspection Neck normal inspection, non-tender, supple, full range of motion Respiratory Status Yes: trachea midline, chest symmetrical, non tender chest. No: respiratory distress. Lung Sounds bilateral: normal breath sounds, lungs clear. Cardiovascular normal exam, regular rate/rhythm, no peripheral edema, no gallop, no JVD, no murmur, no rub, normal peripheral pulses Peripheral Pulses Pulses normal Yes Gastrointestinal normal bowel sounds, normal exam, non tender, soft, no organomegaly Back lumbar surgical scar. Tenderness of the entire spine. Extremities normal range of motion, normal inspection, tender posterior RIGHT hip without shortening, or malrotation. Normal neurovascular status. Neurologic alert, oriented x 3, moves all 4 extremities well Mental status normal mood/affect Skin intact, normal color, warm/dry Medical Decision Making LABS/Meds/Orders Pt receiving controlled substance in ED? Yes [place] was queried for this patient? No Reason not queried - emergent pt cond=no time Results/Orders Current Medication Orders Sig/Júnior Start time Last Medication Dose Route Stop Time Status Admin Hydrocodone Bitart/ 1 TAB ONCE ONE 05/11 183 r Acetaminophen PO 05/11 183 Orders Procedure Date/time Status DIET-NOTHING BY MOUTH 05/[address] HEAD REQ 05/[address] SCAN REQUEST 05/11 1524 Complete HIP RT 2-3V W/PELVIS IF PERFOR 05/11 1524 Active XRAY/CT/US XRAY/CT/US XRAY hip Comment Hip X-ray interpreted by Alfonso Rush MD. Negative for fracture, dislocation, or foreign body. CT head, C-spine, T-spine, L-spine Comment CT scan interpreted by radiologist: Cervical spine: No acute fracture. Cervical spondylosis. Reversal of lordosis. Head: No acute intracranial pathology. Lumbar spine: No acute fracture. Lumbar spondylosis with osteopenia. Thoracic spine: No acute fracture. Osteopenia. Kyphoscoliosis. Progress - The patient has taken Lortab in the past for pain, requests the same now. Departure Departure Disposition DC Home or Self Care(routine) Clinical Impression Primary Impression: Back contusion Qualifiers: Encounter type: initial encounter Laterality: unspecified laterality Qualified Code: S20.229A - Contusion of unspecified back wall of thorax, initial encounter Secondary Impressions: Cervical strain Qualifiers: Encounter type: initial encounter Qualified Code: S16.1XXA - Strain of muscle, fascia and tendon at neck level, initial encounter Contusion of right hip Qualifiers: Encounter type: initial encounter Qualified Code: S70.01XA - Contusion of right hip, initial encounter Scalp contusion Qualifiers: Encounter type: initial encounter Qualified Code: S00.03XA - Contusion of scalp, initial encounter Condition STABLE Referrals Brian MATHEWS,A.C. (Family) Patient Instructions DI for Contusion, DI for Low Back Pain, DI for Neck Sprain, DI for Thoracic Back Pain, How to Prevent Falls Additional Instructions Take your blood pressure medication when he arrives home. Follow-up with your primary care physician, call for appointment. Prescriptions Current Visit Scripts HYDROCODONE/ACETAMINOPHEN ([place] 5-325 Tablet) 1 TAB PO Q6HP PRN pain #10 TAB ED Critical Care Critical Care No at 1820
[2017-05-11] MEDS ORDERED: NORCO 325 MG-51 TAB PO (18:19)
[2017-05-11 18:33] VITALS: BP 154/86
--- NOTE | 2017-05-11 19:53 | RADIOLOGY REPORT PS360 ---
HIP RT 2-3V W/PELVIS IF PERFOR HISTORY: Posttraumatic pain FALL ORDERING PHYSICIAN: Alfonso Rush MD PATIENT AGE: 71 years COMPARISON: None FINDINGS: No fracture or dislocation. No erosive process or destructive process apparent. No significant arthritic change. IMPRESSION: Negative right hip
== END 2017-05-11 18:34 | disposition home or self-care (01) ==
LOC: ER 14:54
DX: S20.229A Contusion of unspecified back wall of thorax, initial encounter (principal); S16.1XXA Strain of muscle, fascia and tendon at neck level, initial encounter; S70.01XA Contusion of right hip, initial encounter; S00.03XA Contusion of scalp, initial encounter; I10 Essential (primary) hypertension; I25.10 Atherosclerotic heart disease of native coronary artery without angina pectoris; J44.9 Chronic obstructive pulmonary disease, unspecified; K21.9 Gastro-esophageal reflux disease without esophagitis; F41.8 Other specified anxiety disorders; Z72.0 Tobacco use; Z91.81 History of falling; W01.0XXA Fall on same level from slipping, tripping and stumbling without subsequent striking against object, initial encounter; Y92.009 Unspecified place in unspecified non-institutional (private) residence as the place of occurrence of the external cause